=== PATIENT | male | born 1995 | race Two or more races ===

== ENCOUNTER 2021-09-19 07:15 | Emergency (ER) | payer OTHER, SELFPAY ==
--- NOTE | ~2021-09-19 | CT_ITS ---
EXAMINATION: CT HEAD WITHOUT CONTRAST CLINICAL INFORMATION: Headache. COMPARISON: None TECHNIQUE: Contiguous axial imaging was performed from the skull base to vertex without intravenous administration of contrast. This CT examination was performed using dose optimization techniques as appropriate, variously including the following: *Automated exposure control *Adjustment of mA and/or kV according to patient size (this includes techniques or standardized protocols for targeted exams where dose is matched to indication/reason for exam; i.e. extremities or head) *Use of iterative reconstruction technique DLP: 687 mGy-cm FINDINGS: There is no evidence of acute intracranial hemorrhage or territorial infarction. No abnormal mass effect or midline shift is seen. Pineda to white matter differentiation is well preserved. No extra-axial fluid collections are identified. The ventricles are normal in size. There is no abnormal attenuation within the brain parenchyma. The osseous structures and soft tissues are normal. The mastoid air cells and visualized portions of the paranasal sinuses are well aerated. CT/CT head/brain wo con IMPRESSION: No acute intracranial process seen
[2021-09-19 07:36] VITALS: BP 141/88; PULSE 108; RESP 16; TEMP 36.9; O2SAT 94; BMI 29.8
[2021-09-19] MEDS: Butalb/Acetamin/Caff 50/325/40 TABLET 1 TAB PO (08:16)
--- NOTE | 2021-09-19 08:17 | ED_ITS ---
HPI - Headache General Chief Complaint: General Medical Stated Complaint: headache Time Seen by Provider: 09/19/21 08:06 Source: patient Mode of arrival: ambulatory Limitations: no limitations History of Present Illness HPI Narrative: recently seen by [facility] and PCP for elevated HRs he is 3 months post COVID - negative labs and CXR MD elicited complaint: headache Onset (ago): week(s) (1) Onset description: gradually Location: generalized Severity: moderate Quality & Timing: throbbing Exacerbating factors: none Relieving factors: nothing Context: occurred at rest Associated symptoms: other (head feels sensitivie to touch) Treatments prior to arrival: acetaminophen and ibuprofen Related Data Previous Rx's Medication Instructions Recorded [id number]-lqrimwuxeqdqk-ztzkbbum 1 tab PO Q6H PRN #20 tab 09/19/21 50 mg-325 mg-40 mg tablet cyclobenzaprine 10 mg tablet 10 mg PO TID PRN #14 tab 09/19/21 Allergies Allergy/AdvReac Type Severity Reaction Status Date / Time No Known Allergies Allergy Verified 09/19/21 07:36 Review of Systems Review of Systems: Constitutional : No Fever, No Chills, No Fatigue ENT/Mouth : No sore throat, No Rhinorrhea Eyes: No Eye Pain, No Swelling, No Redness Cardiovascular : No Chest Pain, No SOB, No Dyspnea on Exertion Respiratory : No Cough, No Sputum Gastrointestinal : No Nausea, No Vomiting, No Diarrhea, No abdominal Pain Genitourinary : No Dysuria, No Urinary Frequency, No Hematuria, Musculoskeletal : No joint pain, No Myalgias, No Joint Swelling Skin : No Skin Lesions, No rash Neuro : No Weakness, No Numbness, No Dizziness, positive Headache Psych : No Anxiety/Panic, No Depression Heme/Lymph: No Bruising, No Bleeding,No Lymphadenopathy Endocrine : No Polyuria, No Polydipsia All other systems reviewed and are negative PMFSH Past Medical History Attestation statement: The following information was validated with the patient. Medical History No known health problems Social History Social History (Updated 09/19/21 @ 08:27 by Maira Ho DO) Alcohol intake: never Patient Tobacco Use Status: Current someday Tobacco user Smoked in Last 30 Days: Yes e-Cigarette/Vaping Use: Currently Using Use of substances other than those prescribed or required for medical reasons: No Advance Directives: No Advance Directives Information Provided: No Physical Exam Vital Signs: Vital Signs: Last Vital Signs Temp 98.4 F 09/19/21 07:36 Pulse 108 H 09/19/21 07:36 Resp 16 09/19/21 07:36 BP 141/88 H 09/19/21 07:36 Pulse Ox 94 09/19/21 07:36 Body Mass Index 29.8 Appearance: Alert. Oriented X3. No acute distress. Eyes: Pupils equal, round and reactive to light. ENT: Pharynx normal. Neck: Normal inspection. Neck supple. no meningeal signs CVS: Normal heart rate and rhythm. Pulses normal. Respiratory: No respiratory distress. Breath sounds normal. Abdomen: Soft and nontender. Skin: Skin warm and dry. Normal skin color. Normal skin turgor. Extremities: No lower extremity edema. No calf ttp Neuro: Oriented X 3. No motor deficit. No sensory deficit. MDM - Headache MDM Narrative Medical decision making narrative: 26 yo male with no sig PMH here with c/o 1 week of worsening headache no fevers no meningeal signs normal neuro exam - I do not suspect SAH or [employer] infection will obtain CT head for mass. Dispo per resulst and findings. Discharge Plan Discharge Clinical Impression: Tension headache Patient Disposition: Home, Self-Care Instructions: Tension Headache (ED) Additional Instructions: return to ED for any worsening symptoms or concerns There is no evidence of acute intracranial hemorrhage or territorial infarction. No abnormal mass effect or midline shift is seen. Pineda to white matter differentiation is well preserved. No extra-axial fluid collections are identified. The ventricles are normal in size. There is no abnormal attenuation within the brain parenchyma. The osseous structures and soft tissues are normal. The mastoid air cells and visualized portions of the paranasal sinuses are well aerated. ? CT/CT head/brain wo con IMPRESSION: No acute intracranial process seen Prescriptions: New cyclobenzaprine 10 mg tablet 10 mg PO TID PRN (Reason: muscle spasm) Qty: 14 RF: 0 tlgtsarjop-arozdcfrwneyb-wdim 50-325-40 mg tablet 1 tab PO Q6H PRN (Reason: pain) Qty: 20 RF: 0 Referrals: Physician,Unknown J [Primary Care Provider] - 5 days Stand Alone Forms: Work/School Release
== END 2021-09-19 09:09 | disposition home or self-care (01) ==
PROVIDERS: Emergency Provider Emergency Medicine
DX: G44.209 Tension-type headache, unspecified, not intractable (principal); F17.200 Nicotine dependence, unspecified, uncomplicated
CPT/HCPCS: 70450; 99284

== ENCOUNTER 2023-03-23 08:34 | Emergency (ER) | payer OTHER, SELFPAY ==
[2023-03-23 08:39] VITALS: BP 143/93; PULSE 91; RESP 20; TEMP 36.6; O2SAT 100; BMI 30.3
--- NOTE | 2023-03-23 08:51 | ED.URI ---
HPI - URI/Sore Throat General Chief Complaint: Upper Respiratory Symptoms Stated Complaint: sore throat Time Seen by Provider: 03/23/23 08:49 Source: patient, RN notes reviewed and old records reviewed Mode of arrival: ambulatory History of Present Illness HPI Narrative: 27-year-old male with no significant past medical history presenting to the ED complaining of sore throat painful swelling x 5 days. Admits to seen at urgent care yesterday tested negative for strep and COVID, however reports continued symptoms. Denies fever, chills, ear pain, cough, recent travel, difficulty/inability to swallow MD elicited complaint: sore throat Related Data Previous Rx's Medication Instructions Recorded [id number]-dfgzgkprfthsi-shovxgtx 1 tab PO Q6H PRN pain #20 tabs 09/19/21 50 mg-325 mg-40 mg tablet cyclobenzaprine 10 mg tablet 10 mg PO TID PRN muscle spasm #14 09/19/21 tabs lidocaine HCl 2 % mucosal solution 5 ml mucous membrane BID PRN pain 03/23/23 (Lidocaine Viscous) 5 days #50 mL Allergies Allergy/AdvReac Type Severity Reaction Status Date / Time No Known Allergies Allergy Verified 03/23/23 08:43 Review of Systems Review of Systems: Constitutional: No Fever, No Chills ENT/Mouth: No Ear Pain, No Nasal Congestion, No Sinus Pain, No Hoarseness, + sore throat, No Rhinorrhea, No Swallowing Difficulty Cardiovascular: No Chest Pain, No SOB Respiratory: No Cough, No Sputum, No Wheezing Gastrointestinal: No Nausea, No Vomiting, No Abdominal pain Musculoskeletal: No joint pain, No Myalgias, No Joint Swelling Skin: No Skin Lesions, No rash Neuro: No Weakness Yes all other systems are reviewed and are negative Constitutional: Constitutional: Reports as per [facility] Past Medical History Attestation statement: The following information was validated with the patient. Source: old records reviewed Medical History No known health problems Social History Social History Alcohol intake: never Patient Tobacco Use Status: Current someday Tobacco user e-Cigarette/Vaping Use: Currently Using Advance Directives: No Physical Exam Vital Signs: Vital Signs: Last Vital Signs Temp 97.9 F 03/23/23 08:39 Pulse 91 03/23/23 08:39 Resp 20 03/23/23 08:39 BP 143/93 H 03/23/23 08:39 Pulse Ox 100 03/23/23 08:39 O2 Del Method Room Air 03/23/23 08:39 BMI result Body Mass Index 30.3 Const: General: cooperative, healthy appearing and no acute distress Orientation/consciousness: patient oriented x3 Limitations: no limitations HEENT: Head: Yes normal to inspection and Yes atraumatic Ears: hearing grossly normal bilaterally, external ears normal, TM's normal bilaterally and mastoids normal General nose exam: Normal external nose present Face and sinus: Yes normal facial exam Throat: Yes tonsils normal, Yes uvula midline, Yes posterior oropharynx abnormal (erythematous ), No uvula laterally displaced and No uvular edema Eyes: General: appearance normal, both eyes and all related structures EOM: EOMs intact bilaterally Neck: Neck: Yes normal visual inspection and Yes no meningeal signs Resp: Effort & Inspection: normal respiratory effort and no respiratory distress Auscultation: clear to auscultation bilaterally, no crackles, no rhonchi and no wheezes Cardio: Rate: regular rate Heart sounds: S1 normal heart sound present and S2 normal heart sound present Skin: Rashes: no rashes Wounds: no wounds Neuro: General: patient oriented x3, tone normal and no meningeal signs Gait exam (Neuro): Normal gait present Extrem: General: Yes normal to inspection Course Course Course Narrative: -COVID/flu/RSV and rapid strep negative Results discussed with patient including worrisome signs and symptoms and strict return precautions, and when to return to the emergency department. They verbalized understanding and feel safe for discharge at this time. Medications Administered Discontinued Medications Generic Name Dose Route Start Last Admin Trade Name Freq PRN Reason Stop Dose Admin Lidocaine HCl 5 ml 03/23/23 08:58 03/23/23 09:13 Lidocaine Hcl Viscous 2 % 15 Ml Solution MUCOUS MEM 03/23/23 08:59 5 ml ONCE ONE Administration Medical Decision Making Medical Decision Making [facility] Narrative: 27-year-old male with no significant past medical history presenting to the ED complaining of sore throat painful swelling x 5 days. On exam vital signs stable, NAD, nontoxic appearing, no respiratory distress, posterior oropharynx mildly erythematous, uvula midline. Concern for viral illness versus pharyngitis. 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 Differential Diagnosis Differential Diagnoses: The differential diagnosis associated with the presentation includes As above Admission/Observation Consideration of admission/observation: Escalation of care including admission/observation considered Lab Data MDM Lab Attestation statement: I reviewed the patient's lab results. Labs: Lab Results 03/23/23 03/23/23 03/23/23 Range/Units 08:51 09:17 09:17 COVID-19 ([facility]TIS) Negative (Negative) COVID-19 Clin Com See Note Influenza Type A (ANKITA) Negative (Negative) Influenza Type B (ANKITA) Negative (Negative) Influenza A & B Note See Note S. pyogenes GrpA ANKITA Negative (Negative) Radiology Impression Discussion of test interpretation with radiology: I have reviewed the radiologist's reading. External Record Review External record reviewed: Inpatient record, Office record, Outpatient record, Prior outpatient labs, Prior outpatient radiology, Primary care record and Outside ED record Tests considered The following testing was considered but not selected: As above Discharge Plan Discharge Clinical Impression: Pharyngitis, Viral infection Patient Disposition: Home, Self-Care Instructions: Pharyngitis (ED) Additional Instructions: You tested negative for COVID, flu, RSV, and strep throat Gargle with warm salt water Viscous lidocaine will help with numbing the back of your throat If symptoms persist or worsen you are unable to swallow, develops fever, or shortness of breath return to the emergency department Prescriptions: New lidocaine HCl [Lidocaine Viscous] 2 % solution 5 ml mucous membrane BID PRN (Reason: pain) 5 Days Qty: 50 0RF No Action cyclobenzaprine 10 mg tablet 10 mg PO TID PRN (Reason: muscle spasm) Qty: 14 0RF tevvzuupiq-owwnttdmctklm-mvhx 50-325-40 mg tablet 1 tab PO Q6H PRN (Reason: pain) Qty: 20 0RF Referrals: Physician,Unknown J [Primary Care Provider] - Stand Alone Forms: Work/School Release Interventions: ED Discharge Assessment Last Done: 03/23/23 09:52 Discharge Date/Time: 03/23/23 09:54
[2023-03-23 09:03] LABS: IDNOW Serial# 08D9AD1C
[2023-03-23 09:04] LABS: Strep A Nucleic Acid Negative (Negative)
[2023-03-23] MEDS: Lidocaine HCl Viscous 2 % 15 ML SOLUTION 5 ML MUCOUS MEM (09:13)
[2023-03-23 09:41] LABS: COVID-19 Test Negative (Negative); IDNOW Serial# 08D9AD1C; IDNOW Serial# BCCEAD1C; Influenza A Negative (Negative); Influenza B2 Negative (Negative)
== END 2023-03-23 09:54 | disposition home or self-care (01) ==
PROVIDERS: Physician Assistant; Emergency Provider Emergency Medicine
DX: B34.9 Viral infection, unspecified (principal); J02.9 Acute pharyngitis, unspecified; Z20.822 Contact with and (suspected) exposure to COVID-19
CPT/HCPCS: 87502; 87635; 87651; 99283

== ENCOUNTER 2023-09-01 19:07 | Emergency (ER) | payer OTHER, SELFPAY ==
--- NOTE | ~2023-09-01 | XR_ITS ---
EXAMINATION: XR ankle RT min 3V, XR foot RT min 3V 09/01/2023 7:29 PM CLINICAL HISTORY: Injury COMPARISON: None FINDINGS: No evidence of acute fracture or malalignment. Ankle mortise is congruent. Talar dome is intact. No tibiotalar joint effusion. Soft tissues are unremarkable. XR/XR foot RT min 3V IMPRESSION: Normal right ankle and foot radiographs.
--- NOTE | ~2023-09-01 | XR_ITS ---
EXAMINATION: XR ankle RT min 3V, XR foot RT min 3V 09/01/2023 7:29 PM CLINICAL HISTORY: Injury COMPARISON: None FINDINGS: No evidence of acute fracture or malalignment. Ankle mortise is congruent. Talar dome is intact. No tibiotalar joint effusion. Soft tissues are unremarkable. XR/XR ankle RT min 3V IMPRESSION: Normal right ankle and foot radiographs.
[2023-09-01 19:08] VITALS: BP 144/104; PULSE 119; RESP 18; TEMP 36.9; O2SAT 98; BMI 32.6
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
[2023-09-01 19:22] VITALS: BP 133/97; PULSE 119; RESP 18; TEMP 37.1; O2SAT 99
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
== END 2023-09-01 21:14 | disposition home or self-care (01) ==
PROVIDERS: Emergency Provider Emergency Medicine; PCP Internal Medicine
DX: S93.401A Sprain of unspecified ligament of right ankle, initial encounter (principal); V43.02XA Car driver injured in collision with other type car in nontraffic accident, initial encounter; Y93.89 Activity, other specified; Y92.410 Unspecified street and highway as the place of occurrence of the external cause; Y99.9 Unspecified external cause status
CPT/HCPCS: 73610; 73630; 99282; 99283

== ENCOUNTER 2023-10-15 19:34 | Emergency (ER) | payer OTHER, SELFPAY ==
--- NOTE | ~2023-10-15 | XR_ITS ---
EXAMINATION: XR CHEST CLINICAL INFORMATION: Shortness of breath. COMPARISON: None available. TECHNIQUE: 2 views of the chest were obtained. FINDINGS: No significant abnormality is noted involving the heart, lungs, mediastinum, bony thorax or soft tissues. XR/XR chest 2V IMPRESSION: Unremarkable examination.
--- NOTE | 2023-10-15 19:54 | ED_ITS ---
HPI - General Adult General Chief complaint: General Medical Stated complaint: difficulty breathing Time Seen by Provider: 10/15/23 20:57 Source: patient Mode of arrival: ambulatory Limitations: no limitations History of Present Illness HPI narrative: 28 yo male with PMH of reactive airway disease in the past who comes in with 1 year of feeling he cannot breathe just worse x 2 weeks but no known triggers, no travel, no new illness, no procedures. He comes in with c/o feeling like he cannot catch his breath. He tried his old inhaler earlier today but no relief. He states when he takes a deep breath he feels like it is not full. He states this has never happened before. He takes no hormones or steroids. MD complaint: dyspnea Onset (ago): year(s) (1) Location: chest Radiation: non-radiation Severity: moderate Relieving factors: none Exacerbating factors: other (deep breathing) Associated symptoms: cough Treatments prior to arrival: other (tried his old albuterol INH) Related Data Previous Rx's Medication Instructions Recorded nufqeiejyh-rulkqadjqguee-yerfoxmk 1 tab PO Q6H PRN pain #20 tabs 09/19/21 50 mg-325 mg-40 mg tablet cyclobenzaprine 10 mg tablet 10 mg PO TID PRN muscle spasm #14 09/19/21 tabs lidocaine HCl 2 % mucosal solution 5 ml mucous membrane BID PRN pain 03/23/23 (Lidocaine Viscous) 5 days #50 mL albuterol sulfate 90 mcg/actuation 2 puff inhalation QID PRN 10/15/23 aerosol inhaler shortness of breath or wheezing #6.7 grams azithromycin 250 mg tablet See Rx Instructions PO .COMPLEX #6 10/15/23 tabs prednisone 20 mg tablet 40 mg (2 x 20 mg) PO DAILY 5 days 10/15/23 #10 tabs Allergies Allergy/AdvReac Type Severity Reaction Status Date / Time No Known Allergies Allergy Verified 09/01/23 19:18 Review of Systems 2 Review of Systems: Constitutional : No Fever, No Chills ENT/Mouth : No sore throat, No Rhinorrhea, No Swallowing Difficulty Eyes: No Eye Pain, No Swelling, No Redness Cardiovascular : No Chest Pain, positive SOB, No Orthopnea, no Edema Respiratory : No Cough, No Sputum, No Wheezing, positive dyspnea Gastrointestinal : No Nausea, No Vomiting, No Diarrhea, No abdominal Pain, No Hematochezia, No Melena Genitourinary : No Dysuria, No Urinary Frequency, No Hematuria Musculoskeletal : No joint pain, No Myalgias Skin : No Skin Lesions, No rash Neuro : No Weakness, No Numbness, No Dizziness, No Headache Psych : No Anxiety/Panic, No Depression All other systems reviewed and are negative [facility] Past Medical History Attestation statement: The following information was validated with the patient. Source: old records reviewed Medical History No known health problems Social History Social History Alcohol intake: never Patient Tobacco Use Status: Current someday Tobacco user e-Cigarette/Vaping Use: Currently Using Advance Directives: No Advance Directives Information Provided: Yes Physical Exam ED Vital Signs: Vital Signs - 24 hr 10/15/23 19:55 10/15/23 20:25 10/15/23 21:38 Temperature 97.0 F 97.3 F Pulse Rate 114 H 125 H 115 H Respiratory Rate 20 21 H 12 Blood Pressure 150/99 H 138/91 H Pulse Oximetry 99 98 Oxygen Delivery Method Room Air Room Air BMI result Body Mass Index 31.9 Appearance: Alert. Oriented X3. No acute distress. Eyes: Pupils equal, round and reactive to light. ENT: Pharynx normal. Neck: Normal inspection. Neck supple. CVS: tachycardic heart rate and rhythm. Pulses normal. Respiratory: No respiratory distress. Breath sounds normal. Abdomen: Soft and nontender. Skin: Skin warm and dry. Normal skin color. Normal skin turgor. Extremities: No lower extremity edema. No calf ttp Neuro: Oriented X 3. No motor deficit. No sensory deficit. Course Course Course Narrative: This is an RME: Additional HPI, ROS, PE not included below will be deferred to primary provider. This is a [id number]-male presenting to the ER with a complaint of shortness of breath and fatigue x 2 weeks. States that he could sleep for 10 hours. Reports that he stops breathing at bedtime. Plan: Labs, EKG, CXR Reevaluation(s) Reevaluation #1: did trial one time with albuterol neb and no improvement in symptoms Reevaluation #2: no signs of infection lactic acidosis likely related to albuterol use and not infection or severe sepsis Medications Administered Discontinued Medications Generic Name Dose Route Start Last Admin Trade Name Samy PRN Reason Stop Dose Admin Albuterol Sulfate 2.5 mg 10/15/23 21:32 10/15/23 21:36 Albuterol Sulfate (0.083%) 2.5 Mg/3 Ml Vial.Neb INHALE 10/15/23 21:33 2.5 mg ONCE ONE Administration Medical Decision Making Medical Decision Making [facility] Narrative: 28 yo male with no known PMH here with c/o dyspnea x 1 year worsening x 2 weeks he has no risk factors for ACS or VTE. He is a smoker and gave up vaping. He has no clinical signs of CHF. At this time will obtain xray, EKG, viral panel, basic labs, trop and BNP. Will also add on ddimer given unexplained tachycardia - he has no signs of hyperthyroidism like weight loss or other issues. Will trial albuterol neb here. Could be bronchitis, anxiety, VTE. Differential Diagnosis Differential Diagnoses: The differential diagnosis associated with the presentation includes bronchitis, anxiety, VTE. Admission/Observation Consideration of admission/observation: Escalation of care including admission/observation considered trop bnp cxr and EKG - ddimer all negative at this time stable for DC Lab Data [facility] Lab Attestation statement: I reviewed the patient's lab results. 10/15/23 20:35 10/15/23 20:35 Labs: Lab Results 10/15/23 10/15/23 10/15/23 Range/Units 20:35 20:41 21:28 WBC 6.0 (4.8-10.8) X10*3/uL RBC 4.97 (4.60-5.80) X10*6/uL Hgb 14.9 (14.0-18.0) g/dl Hct 42.2 (42.0-52.0) % MCV 84.9 (80.0-98.0) fL MCH 30.0 (27.0-33.0) pg MCHC 35.3 (31.0-36.0) g/dl RDW 12.6 (11.0-16.0) % Plt Count 354 (160-400) X10*3/uL MPV 9.4 (9.4-12.4) fL Immature Gran % (Auto) 0.3 (0.0-0.4) % Neut % (Auto) 39.5 L (45-73) % Lymph % (Auto) 48.1 H (20-40) % Sunflower % (Auto) 10.6 (2-11) % Eos % (Auto) 0.7 (0-4) % Baso % (Auto) 0.8 (0-2) % Lymph # (Auto) 2.9 (1.2-4.9) X10*3/uL Sunflower # (Auto) 0.6 (0.1-1.2) X10*3/uL Eos # (Auto) 0.0 (0.0-0.4) X10*3/uL Baso # (Auto) 0.1 (0.0-0.2) X10*3/uL Abs Immat Gran (auto) 0.02 (0.00-0.03) X10*3/uL Absolute Neuts (auto) 2.4 (2.0-8.3) x10*3/uL Absolute Nucleated RBC 0.000 (0.0-0.012) X10*3/uL Nucleated RBC % (auto) 0.0 (0.0-0.2) /100WBC D-Dimer High Sensitivty < 150 NG/ML Sodium 142 (135-145) mmol/L Potassium 3.6 (3.3-5.1) mmol/L Chloride 107 (96-108) mmol/L Carbon Dioxide 24 (22-29) mmol/L Anion Gap 15 (12-20) BUN 11 (9-16) mg/dL Creatinine 0.86 (0.5-1.4) mg/dL Estim Creat Clear Calc 150.2 Estimated GFR > 60 Random Glucose 122 H (60-115) mg/dL Lactic Acid 2.9 H* (0.5-2.0) mmol/L Calcium 9.9 (8.4-10.2) mg/dL Magnesium 1.8 (1.6-2.6) mg/dL Total Bilirubin 0.7 (0.0-1.0) mg/dL Direct Bilirubin 0.1 (0.0-0.5) mg/dL AST 34 (5-37) U/L ALT 60 H (0-40) U/L Alkaline Phosphatase 65 (39-117) U/L Troponin I High Sens < 2.7 (<3.5-35.0) ng/L B-Natriuretic Peptide < 10 (<100) pg/mL Total Protein 8.2 H (6.5-8.0) g/dL Albumin 4.6 (3.5-5.0) g/dL TSH 0.61 (0.32-4.0) uIU/mL Monoscreen Negative (Negative) Influenza Type A (PCR) NEGATIVE (Negative) Influenza Type B (PCR) NEGATIVE (Negative) RSV RNA Qual (PCR) NEGATIVE (Negative) SARS-CoV-2 RNA (RT-PCR) NEGATIVE (Negative) Independent Interpretation I performed an independent interpretation of an: EKG and Plain X-Ray (normal ) Interpretation: Rate: 117 Rhythm: sinus tachycardia [place]: normal Normal P waves. Normal AKILA. Normal QRS complex. ST T wave : no SHIRLEN[place], nonspecific ST T wave changes qTC: normal prior studies: no acute ischemia The study has been interpreted contemporaneously by me. . Radiology Impression Discussion of test interpretation with radiology: I have reviewed the radiologist's reading. External Record Review External record reviewed: Office record Prescription Management I considered prescription management with: Other Discharge Plan Discharge Clinical Impression: Shortness of breath Patient Disposition: Home, Self-Care Instructions: Shortness of Breath (ED) Additional Instructions: you had normal viral panel - no covid, rsv or flu. your chest xray and EKG were not acute you had a normal test for your heart, heart failure and no blood clots. your thyroid was normal at this time unexplained cause of your shortness of breath. will trial a short course of prednisone, albuterol INH and zpak - to see if this improves your symptoms if this does not please see your doctor for further workup Prescriptions: New azithromycin 250 mg tablet See Rx Instructions .ROUTE .COMPLEX Qty: 6 0RF Rx Instructions: For 250 mg dose pack: take 500 mg today (day 1), then 250 mg for 4 days (days 2-5) prednisone 20 mg tablet 40 mg PO DAILY 5 Days Qty: 10 0RF albuterol sulfate 90 mcg/actuation HFA aerosol inhaler 2 puff inhalation QID PRN (Reason: shortness of breath or wheezing) Qty: 6.7 0RF No Action cyclobenzaprine 10 mg tablet 10 mg PO TID PRN (Reason: muscle spasm) Qty: 14 0RF purcylgbqc-xfufdlowqbfvp-glzn 50-325-40 mg tablet 1 tab PO Q6H PRN (Reason: pain) Qty: 20 0RF lidocaine HCl [Lidocaine Viscous] 2 % solution 5 ml mucous membrane BID PRN (Reason: pain) 5 Days Qty: 50 0RF
[2023-10-15 19:55] VITALS: BP 150/99; PULSE 114; RESP 20; TEMP 36.1; O2SAT 99; BMI 31.9
--- NOTE | 2023-10-15 19:57 | ECG_ITS ---
Test Reason : tachy Blood Pressure : / mmHG Vent. Rate : 117 BPM Atrial Rate : 117 BPM P-R Int : 134 ms QRS Dur : 074 ms QT Int : 296 ms P-R-T Axes : 049 055 -03 degrees QTc Int : 412 ms Sinus tachycardia Nonspecific T wave abnormality Abnormal ECG No previous ECGs available Referred By: Magnolia Girard Electronically Signed By:ESTRELLA MILLER MD
[2023-10-15 20:25] VITALS: BP 138/91; PULSE 125; RESP 21; TEMP 36.3; O2SAT 98
[2023-10-15 20:43] LABS: MANUAL DIFF FLAG NO
[2023-10-15 20:45] LABS: Basophils Absolute Auto 0.1 X10*3/uL (0.0-0.2); Basophils Percent Auto 0.8 % (0-2); Eosinophils Percent Auto 0.7 % (0-4); Hematocrit 42.2 % (42.0-52.0); Hemoglobin 14.9 g/dl (14.0-18.0); Imm Gran Abs Auto 0.02 X10*3/uL (0.00-0.03); Imm Gran Pct Auto 0.3 % (0.0-0.4); Lymphocytes Absolute Auto 2.9 X10*3/uL (1.2-4.9); Lymphocytes Percent Auto 48.1 % (20-40); Mean Corpuscular HGB Conc 35.3 g/dl (31.0-36.0); Mean Corpuscular Volume 84.9 fL (80.0-98.0); Mean Platelet Volume 9.4 fL (9.4-12.4); Monocytes Absolute Auto 0.6 X10*3/uL (0.1-1.2); Monocytes Percent Auto 10.6 % (2-11); Neutrophils Absolute Auto 2.4 x10*3/uL (2.0-8.3); Neutrophils Percent Auto 39.5 % (45-73); Platelet Count 354 X10*3/uL (160-400); Red Blood Count 4.97 X10*6/uL (4.60-5.80); Red Cell Distribution Width 12.6 % (11.0-16.0)
[2023-10-15 20:56] LABS: Lactic Acid 2.9 mmol/L (0.5-2.0)
[2023-10-15 20:57] LABS: Monotest Negative (Negative)
[2023-10-15 21:07] LABS: Alanine Aminotransferase 60 U/L (0-40); Albumin Level 4.6 g/dL (3.5-5.0); Alkaline Phosphatase 65 U/L (39-117); Anion Gap 15 (12-20); Aspartate Amino Transferase 34 U/L (5-37); Bilirubin Direct 0.1 mg/dL (0.0-0.5); Bilirubin Total 0.7 mg/dL (0.0-1.0); Blood Urea Nitrogen 11 mg/dL (9-16); Calcium 9.9 mg/dL (8.4-10.2); Carbon Dioxide 24 mmol/L (22-29); Chloride 107 mmol/L (96-108); Creatinine Clr Calc Pharmacy 150.2; Estimated Glomerular Filt Rate > 60; Glucose Random 122 mg/dL (60-115); Potassium 3.6 mmol/L (3.3-5.1); Sodium 142 mmol/L (135-145); Total Protein 8.2 g/dL (6.5-8.0)
[2023-10-15 21:09] LABS: Troponin-I High Sensitivity < 2.7 ng/L (<3.5-35.0)
[2023-10-15 21:21] LABS: TSH reflex Free T4 0.61 uIU/mL (0.32-4.0)
[2023-10-15] MEDS: Albuterol Sulfate (0.083%) 2.5 MG/3 ML VIAL.NEB INHALE (21:36)
[2023-10-15 21:38] VITALS: PULSE 115; RESP 12; O2SAT 98
[2023-10-15 21:45] LABS: Influenza A PCR NEGATIVE (Negative); Influenza B PCR NEGATIVE (Negative); Resp Syncy Virus RNA Qual PCR NEGATIVE (Negative); SARS COV2 PCR INHOUSE NEGATIVE (Negative)
[2023-10-15 22:03] LABS: Magnesium 1.8 mg/dL (1.6-2.6)
[2023-10-15 22:15] LABS: B Type Natriuretic Peptide < 10 pg/mL (<100)
[2023-10-15 22:31] LABS: D Dimer High Sensitivity < 150 NG/ML
[2023-10-15 22:45] LABS: Cancel Lactic Acid Canceled
== END 2023-10-15 22:48 | disposition home or self-care (01) ==
PROVIDERS: Physician Assistant Medical; Emergency Provider Emergency Medicine
DX: R06.02 Shortness of breath (principal); R05.9 Cough, unspecified; R00.0 Tachycardia, unspecified; Z20.822 Contact with and (suspected) exposure to COVID-19; Z20.828 Contact with and (suspected) exposure to other viral communicable diseases; Z79.899 Other long term (current) drug therapy
CPT/HCPCS: 0241U; 36415; 71046; 80048; 80076; 83605; 83735; 83880; 84443; 84484; 85025; 85379; 86308; 87040; 93005; 94640; 99284

== ENCOUNTER → 2023-10-15 19:57 | Outpatient (BNV) | payer OTHER, SELFPAY | PROVIDERS: Emergency Provider Emergency Medicine; Visit Provider Internal Medicine Cardiovascular Disease | DX: R00.0 Tachycardia, unspecified (principal) | CPT/HCPCS: 93010 ==